=== PATIENT | female | born 1990 | race American Indian/Alaskan Native ===

== ENCOUNTER 2016-08-26 18:35 | Emergency (ER) | payer SELFPAY ==
--- NOTE | 2016-08-26 23:47 | Emergency Department Report ---
HPI - General Chief Complaint: Upper Respiratory Infection Time Seen by Provider: 08/26/16 23:32 - HPI HPI: This is a 26-year-old Afro[place] female presents to the emergency department with a 24-hour history of a dry cough, body aches, intermittent shortness of breath and subjective fever with feelings of warmth and chills intermittently. Patient denies any past medical history and does not have a primary care doctor. She is a tobacco smoker. She denies any recent travel or sick contacts at home. She is not taken anything for symptoms prior to presentation. ED Past Medical Hx - Medications Home Medications: Home Medications Medication Instructions Recorded Confirmed Last Taken Type ALBUTEROL Inhaler [ProAir HFA 2 puff IH QID PRN #1 inhalation 08/27/16 Unknown Rx Inhaler] Ibuprofen [Motrin] 600 mg PO Q8H PRN #20 tablet 08/27/16 Unknown Rx guaiFENesin/CODEINE [Robitussin AC] 5 ml PO Q6H PRN #80 oral.liqd 08/27/16 Unknown Rx ED Review of Systems ROS: Stated complaint: COUGH/CONGESTED/JAW PAIN/HEADACHE Other details as noted in HPI Constitutional: chills, fever Eyes: denies: eye pain, eye discharge, vision change ENT: denies: ear pain, throat pain Respiratory: cough, shortness of breath Cardiovascular: denies: chest pain, palpitations Gastrointestinal: denies: abdominal pain, nausea, diarrhea Genitourinary: denies: urgency, dysuria, discharge Musculoskeletal: myalgia. denies: joint swelling Skin: denies: rash, lesions Neurological: denies: headache, weakness, paresthesias Physical Exam - Physical Exam Vital Signs: Vital Signs 08/26/16 19:31 Temperature 99.5 F Pulse Rate 88 Respiratory 18 Rate Blood Pressure 154/100 O2 Sat by Pulse 100 Oximetry Physical Exam: GENERAL: The patient is well-developed well-nourished. Patient does not appear in any acute distress. HEENT: Normocephalic. Atraumatic. Extraocular motions are intact. Patient has moist mucous membranes. Oropharynx is clear without tonsillar hypertrophy, erythema or exudates. NECK: Supple. Trachea is midline. CHEST/LUNGS: Clear to auscultation. No cough heard during examination. There is no respiratory distress noted. HEART/CARDIOVASCULAR: Regular. There is no tachycardia. There is no gallop rub or murmur. ABDOMEN: Abdomen is soft, nontender. Patient has normal bowel sounds. There is no abdominal distention. SKIN: There is no rash. There is no edema. There is no diaphoresis. NEURO: The patient is awake, alert, and oriented. The patient is cooperative. The patient has no focal neurologic deficits. The patient has normal speech. MUSCULOSKELETAL: There is no tenderness or deformity. There is no limitation range of motion. There is no evidence of acute injury. ED Course Vital Signs 08/26/16 19:31 Temperature 99.5 F Pulse Rate 88 Respiratory 18 Rate Blood Pressure 154/100 O2 Sat by Pulse 100 Oximetry ED Medical Decision Making - Radiology Data Radiology results: image reviewed interpreted by me: Chest x-ray did not show any acute process. Heart is normal shape and size. No effusions. No pneumothorax. No signs of pneumonia seen. - Medical Decision Making 36-year-old female presents with a 24-hour history of a productive cough, body aches and subjective fever. Patient was negative for influenza. Chest x-ray does not show any signs of pneumonia. Patient most likely has a viral syndrome. She'll be treated symptomatically with some Robitussin-AC for cough and antivirals [place] for body aches. She'll be given referrals for primary care. Vital signs stable including being afebrile but she has some mild hypertension. - Differential Diagnosis URI, pneumonia, bronchitis, influenza Critical Care Time: No Critical care attestation.: If time is entered above; I have spent that time in minutes in the direct care of this critically ill patient, excluding procedure time. ED Disposition Clinical Impression: Upper respiratory infection Qualifiers: URI type: unspecified URI Qualified Code(s): J06.9 - Acute upper respiratory infection, unspecified Hypertension Qualifiers: Hypertension type: essential hypertension Qualified Code(s): I10 - Essential ( primary) hypertension Disposition: DISCHARGED TO HOME OR SELFCARE Is pt being admited?: No Condition: Stable Instructions: Hypertension (ED), Upper Respiratory Infection (ED) Additional Instructions: Please follow-up with a primary care doctor in the next few days. Return to the emergency department with any worsening of your symptoms or any acute distress. You've been prescribed a medication that is sedating. Therefore this medication cannot be mixed with alcohol, or taken prior to driving, working, or being responsible for children. Prescriptions: Ibuprofen [Motrin] 600 mg PO Q8H PRN #20 tablet PRN Reason: Pain ALBUTEROL Inhaler [ProAir HFA Inhaler] 2 puff IH QID PRN #1 inhalation PRN Reason: Shortness Of Breath guaiFENesin/CODEINE [Robitussin AC] 5 ml PO Q6H PRN #80 oral.liqd PRN Reason: Cough Referrals: PRIMARY CAREMD [Primary Care Provider] - 3-5 Days DICKSON OVALLE MD [Staff Physician] - 3-5 Days [facility] [Outside] - 3-5 Days Forms: Work/School Release Form(ED) Time of Disposition: 02:31
[2016-08-27] MEDS ORDERED: TORADOL IM ONE (00:57)
[2016-08-27 02:40] VITALS: BP 141/101
--- NOTE | 2016-08-27 07:23 | XRay Report ---
CHEST 2 VIEWS INDICATION: Cough. COMPARISON: None similar at this institution. FINDINGS: PA and lateral chest radiographs demonstrate normal cardiomediastinal silhouette. Clear lungs. Intact bones. Abdomen shielded. CONCLUSION: No acute disease in the chest. Thank you for the opportunity to participate in this patient's care.
== END 2016-08-27 02:40 | disposition home or self-care (01) ==
LOC: ED 18:35
DX: J06.9 Acute upper respiratory infection, unspecified (principal); I10 Essential (primary) hypertension
CPT/HCPCS: 71020; 87400; 96372; 99283; J1885